=== PATIENT | female | born 1945 | race Caucasian/White ===

== ENCOUNTER 2016-07-04 16:10 | Emergency (ER) | payer OTHER ==
[2016-07-04] MEDS ORDERED: SODIUM CHLORIDE 0.9% 1,000 ML ONE (18:55)
[2016-07-04] MEDS ORDERED: ONDANSETRON 4 MG VIAL ONE (20:50)
[2016-07-04] MEDS ORDERED: KETOROLAC 30 MG/ML VIAL ONE (20:50)
== END 2016-07-04 21:15 | disposition home or self-care (01) ==
LOC: ER 16:10
DX: B34.9 Viral infection, unspecified (principal); R51 Headache; Z79.899 Other long term (current) drug therapy; I10 Essential (primary) hypertension; F32.9 Major depressive disorder, single episode, unspecified; K21.9 Gastro-esophageal reflux disease without esophagitis
CPT/HCPCS: 36415; 71020; 80053; 81003; 85025; 87804; 96361; 96374; 96375; 99284; J1885; J2405